=== PATIENT | male | born 1960 ===

== ENCOUNTER 2023-07-11 08:31 | Day surgery (SDC) | payer OTHER ==
[2023-07-11] VITALS (10 sets, daily range): BP systolic 113–148; BP diastolic 68–78
[~2023-07-11] VITALS: Ht 185.4 cm; Wt 106.5 kg
[~2023-07-11 08:31] MED LIST: FISH OIL PO; Hydrochloroth12.5 MG PO; LOSARTAN POTASS25 M1 PO; MULTI-VITAMIN1 EAC2 PO; TRAZ100 PO
--- NOTE | 2023-07-11 10:06 | NUR ---
PRE-OP NOTE PT A&OX4, BREATHING RA, CALM, NO COMPLAINTS, AT BEDSIDE. PT GLASSES IN LABELED BAG IN PACU. Ambulatory in Day Surgery Patient confirms NPO status and agrees with scheduled surgery. Pre-Op teaching done. Pt verbalizes understanding. Patient States Post-Procedure ride home has been arranged.
--- NOTE | 2023-07-11 12:38 | NUR ---
RN SPECIFICALLY ASKED PT IS HE HAS EVERY HAD OXYCODONE OR PERCOCET, PT [facility]
--- NOTE | 2023-07-11 12:39 | NUR ---
CONSULTED WITH PT ON ALLERGY TO HYDROCODE TO SEE IF PT HAS HAD PAST REACTIONS WITH OXYCODONE. PT STATES HE HAS TAKEN OXYCODONE FOR YEARS WITH NO REACTION.
--- NOTE | 2023-07-11 13:02 | NUR ---
4 INCISION TO ABD, WITH DERMABOND, DRESSING DRY AND INTACT, SLIGHT BRUISING NOTED AROUND UMBILCIAL INCISION. PT IS ALERT AND ORIENTED, NO ACUTE DISTRESS. PT ENCOURAGED TO DEEP BREATH AND COUGH, BIOX UP TO 96%.
--- NOTE | 2023-07-11 13:15 | NUR ---
PT HAS TOLERATED APPLESAUCE AND WATER. PAIN PILL PROVIDED. PT HAS ALONG DRIVE TO [place]. PT IN NO ACUTE DISTRESS AT THIS TIME.
--- NOTE | 2023-07-11 13:40 | NUR ---
PT PAIN UNCHANGED. C/O GREATEST PAIN IN R INGUINAL AREA. ADDITIONAL PAIN PILL PROVIDED.
--- NOTE | 2023-07-11 13:50 | NUR ---
Pre-Op teaching done. Pt verbalizes understanding. Discharge instructions reviewed with patient. Patient verbalizes understanding. Copy given to patient to take home. Discharged via wheelchair to private car for ride home.
== END 2023-07-11 13:50 | disposition home or self-care (01) ==
LOC: ORSCMMR 08:31 → ORD 10:00 → ORSCMMR 13:50
PROVIDERS: Surgery
PROC: 0WBH4ZX Excision of Retroperitoneum, Percutaneous Endoscopic Approach, Diagnostic (ICD-10-PCS; principal; 2023-07-11 10:00)
DX: K40.30 Unilateral inguinal hernia, with obstruction, without gangrene, not specified as recurrent (principal); D17.79 Benign lipomatous neoplasm of other sites; K41.90 Unilateral femoral hernia, without obstruction or gangrene, not specified as recurrent; D17.6 Benign lipomatous neoplasm of spermatic cord; I10 Essential (primary) hypertension; Z87.891 Personal history of nicotine dependence; Z79.899 Other long term (current) drug therapy
CPT/HCPCS: 88304; A9270; C1781; J0690; J1100; J1885; J2405; J2704; J3010; J7120